=== PATIENT | male | born 2000 | race African-American/Black ===

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

== ENCOUNTER 2018-01-15 09:48 | Emergency (ER) | payer SELFPAY ==
[2018-01-15] MEDS: LIDOCAINE WITH 8.4% SOD BICARB 3 ML DISP.SYRIN. INJ (11:20)
[2018-01-15] MEDS: DIPHTH,PERTUSS(ACELL),TET TOX 0.5 ML DISP.SYRIN. VAX IM (11:21)
== END 2018-01-15 12:15 | disposition home or self-care (01) ==
LOC: ER 09:48
DX: S81.811A Laceration without foreign body, right lower leg, initial encounter (principal); S80.812A Abrasion, left lower leg, initial encounter; F12.10 Cannabis abuse, uncomplicated; W54.0XXA Bitten by dog, initial encounter; Y93.01 Activity, walking, marching and hiking; Y92.89 Other specified places as the place of occurrence of the external cause; Y99.8 Other external cause status
CPT/HCPCS: 12001; 90471; 90715; 99283

== ENCOUNTER 2020-10-10 10:55 | Emergency (ER) | payer SELFPAY ==
[~2020-10-10] VITALS: Ht 185.4 cm; Wt 118.6 kg
[~2020-10-10 10:55] MED LIST: AMOX1TAB61 PO
[2020-10-10 10:59] VITALS: BP 155/103
[2020-10-10] MEDS ORDERED: TETRACAINE 0.5% OPHTH SOLUTION 4ML BOTTLE. OU ONE (11:15)
[2020-10-10] MEDS ORDERED: ERYT1OIN6 OP (11:18)
--- NOTE | 2020-10-10 11:18 | PHYS DOC ---
Past Medical History Past Medical History: STD Past Surgical History: Tonsillectomy Smoking Status: Current Every Day Smoker Additional Information: 2 cigarettes daily Alcohol Use: None Drug Use: Marijuana General Adult EDM: Chief Complaint: EYE PROBLEMS HPI: HPI: Patient is a 19 year old male who presents with patient states for the last week or 2 he has had a stye in his upper eyelid that is just tender to touch and is been using a warm compress but is not helping. He states that he has no vision changes. Patient states he smoked a lot of marijuana last night and awoke with a blood clot attached to his conjunctiva. Patient states his only tender. Patient's only other history is being a smoker. Marijuana use. Review of Systems: Review of Systems: Constitutional: Denies fever or chills. [] Eyes: Denies change in visual acuity. + Blood clot, conjunctivae of pinkness, upper eyelid stye [] HENT: Denies nasal congestion or sore throat. [] Respiratory: Denies cough or shortness of breath. [] Cardiovascular: Denies chest pain or edema. [] GI: Denies abdominal pain, nausea, vomiting, bloody stools or diarrhea. [] : Denies dysuria. [] Musculoskeletal: Denies back pain or joint pain. [] Integument: Denies rash. +Bump to the upper eyelid skin [] Neurologic: Denies headache, focal weakness or sensory changes. [] Endocrine: Denies polyuria or polydipsia. [] Lymphatic: Denies swollen glands. [] Psychiatric: Denies depression or anxiety. [] Heart Score: Risk Factors: Risk Factors: DM, Current or recent (<one month) smoker, HTN, HLP, family history of CAD, obesity. Risk Scores: Score 0 - 3: 2.5% MACE over next 6 weeks - Discharge Home Score 4 - 6: 20.3% MACE over next 6 weeks - Admit for Clinical Observation Score 7 - 10: 72.7% MACE over next 6 weeks - Early Invasive Strategies Allergies: Allergies: Allergies Coded Allergies Type Severity Reaction Last Updated Verified No Known Drug Allergies 10/10/20 No Physical Exam: PE: Constitutional: Well developed, well nourished, no acute distress, non-toxic appearance. [] HENT: Normocephalic, atraumatic, bilateral external ears normal, oropharynx moist, no oral exudates, nose normal. [] Eyes: PERRLA, EOMI, conjunctiva pink, no discharge. Conjunctiva hemorrhage. Upper eyelid stye that is skin colored [] Neck: Normal range of motion, no tenderness, supple, no stridor. [] Cardiovascular:Heart rate regular rhythm, no murmur [] Lungs & Thorax: Bilateral breath sounds clear to auscultation [] Abdomen: Bowel sounds normal, soft, no tenderness, no masses, no pulsatile masses. [] Skin: Warm, dry, no erythema, no rash. [] Back: No tenderness, no CVA tenderness. [] Extremities: No tenderness, no cyanosis, no clubbing, ROM intact, no edema. [] Neurologic: Alert and oriented X 3, normal motor function, normal sensory function, no focal deficits noted. [] Psychologic: Affect normal, judgement normal, mood normal. [] Current Patient Data: Vital Signs: Vital Signs Date Time Temp Pulse Resp B/P (MAP) Pulse Ox O2 Delivery O2 Flow Rate FiO2 10/10/20 10:59 98.7 92 16 155/103 (120) 97 Room Air 98.7 EKG: EKG: [] Radiology/Procedures: Radiology/Procedures: [] Course & Med Decision Making: Course & Med Decision Making Pertinent Labs and Imaging studies reviewed. (See chart for details) See HPI. Alert and oriented x4. Ambulatory with a steady gait. PERRLA. Conjunctiva is pink in color. Afebrile. Speaks in full clear sentences. Skin pink warm and dry. No redness around the eye or swelling around the eye. Patient is sent home with erythromycin ointment. Eye Exam Visual accuity: Eye exam: PERRL, Extraocular muscles intact. No signs of ruptured globe. Sclera pink. Red reflex present. Conjunctiva hemorrhage is broken apart and mostly removed besides a very small scant portion. Patient states he feels much better. Foreign body: No foreign bodies seen with examination or with lid flip exam. With upper eyelid flip exam stye can be seen from underneath. Stye on the outside of the upper eyelid is skin colored. Slightly tender to palpation. Rufino-pen: NA Fluorescein test: No corneal abrasion. Anesthetic: Tetracaine [] Dragon Disclaimer: Dragon Disclaimer: This electronic medical record was generated, in whole or in part, using a voice recognition dictation system. Departure Departure Impression: Primary Impression: Stye Qualified Codes: H00.014 - Hordeolum externum left upper eyelid Additional Impression: Conjunctival hemorrhage Qualified Codes: H11.32 - Conjunctival hemorrhage, left eye Disposition: DC HOME SELF CARE/HOMELESS Condition: STABLE Referrals: NO PCP (PCP) Shavon BRANNON MD Patient Instructions: Sty, Subconjunctival Hemorrhage Additional Instructions: Use ointment as prescribed. Follow-up with primary care provider if needed. I have also referred you to an eye doctor. If vision changes or eye pain gets worse return to emergency room. Scripts Erythromycin Base (Erythromycin) 1 Gm Oint...g. 1 GM OP TID for 10 Days, #1 [facility] [place]: WHITLEY GUTIERREZ APRN 10/10/20 WHITLEY GUTIERREZ APRN Oct 10, 2020 11:18
== END 2020-10-10 11:32 | disposition home or self-care (01) ==
LOC: ER 10:55
DX: H00.014 Hordeolum externum left upper eyelid (principal); H11.32 Conjunctival hemorrhage, left eye; F12.90 Cannabis use, unspecified, uncomplicated; F17.210 Nicotine dependence, cigarettes, uncomplicated; Z90.89 Acquired absence of other organs
CPT/HCPCS: 99283

== ENCOUNTER 2021-03-19 19:44 | Emergency (ER) | payer SELFPAY ==
[~2021-03-19] VITALS: Ht 188 cm; Wt 113.6 kg
[~2021-03-19 19:44] MED LIST changes: +ERYT1OIN6 OP
[2021-03-19 19:50] VITALS: BP 149/94
[2021-03-20] MEDS ORDERED: FLUT10.6 IH (23:05)
[2021-03-20] MEDS ORDERED: VENTOLIN HFA18 GM INH (23:05)
== END 2021-03-19 21:15 | disposition left against medical advice (07) ==
LOC: ER 19:44
DX: U07.1 COVID-19 (principal); R51.9 Headache, unspecified; Z53.21 Procedure and treatment not carried out due to patient leaving prior to being seen by health care provider

== ENCOUNTER 2021-03-20 19:59 | Emergency (ER) | payer SELFPAY ==
[~2021-03-20] VITALS: Ht 157.5 cm; Wt 116.8 kg
[2021-03-20] MEDS ORDERED: ONDANSETRON PF 4 MG/2 ML VIAL. IVP ONE (21:30)
[2021-03-20] MEDS ORDERED: DEXAMETHASONE SOD PHOS 20 MG/5 ML VIAL. IV ONE (21:30)
[2021-03-20] MEDS ORDERED: IV NORMAL SALINE 1000ML BAG 1,000 ML IV ONE (21:30)
[2021-03-20] MEDS ORDERED: PROCHLORPERAZINE 10 MG/2 ML VIAL. IV ONE (21:30)
[2021-03-20] MEDS ORDERED: diphenhydrAMINE 50 MG/ML VIAL IVP ONE (21:30)
[2021-03-20 21:34] LABS: BASO % 0 % (0-3); EOS % 0 % (0-3); HEMATOCRIT 47.2 % (39.0-53.0); HEMOGLOBIN 16.5 g/dL (13.0-17.5); LYMPH % 24 % (24-48); MEAN CORPUSCULAR HEMOGLOBIN 30 pg (25-35); MEAN CORPUSCULAR HGB CONC 35 g/dL (31-37); MEAN CORPUSCULAR VOLUME 87 fL (79-100); MONO # 0.5 x10^3/uL (0.0-1.1); MONO % 12 % (0-9); NEUT # 2.7 x10^3/uL (1.8-7.7); NEUT % 64 % (31-73); PLATELET COUNT 153 x10^3/uL (140-400); RED BLOOD COUNT 5.42 x10^6/uL (4.30-5.70); RED CELL DISTRIBUTION WIDTH 13.1 % (11.5-14.5); WHITE BLOOD COUNT 4.2 x10^3/uL (4.0-11.0)
[2021-03-20 21:41] LABS: CALCIUM 8.7 mg/dL (8.5-10.1); CREATININE 1.2 mg/dL (0.7-1.3); GFR 91.6; POTASSIUM 3.7 mmol/L (3.5-5.1)
[2021-03-20 21:47] LABS: ALBUMIN 4.1 g/dL (3.4-5.0); ALBUMIN/GLOBULIN RATIO 1.2 (1.0-1.7); TOTAL BILIRUBIN 0.4 mg/dL (0.2-1.0); TOTAL PROTEIN 7.5 g/dL (6.4-8.2)
--- NOTE | 2021-03-20 21:57 | RAD ---
STUDY: CT head without contrast INDICATION: Headache. Covid positive. COMPARISON: 12/13/2015 TECHNIQUE: Axial CT imaging through the head without the use of intravenous contrast. Sagittal and co laurel reformats were obtained. One or more of the following individualized dose reduction techniques were utilized for this examinat ion: 1. Automated exposure control 2. Adjustment of the mA and/or kV according to patient size 3. Use of iterative reconstruction technique. FINDINGS: No acute intracranial hemorrhage. Campbell-white matter differentiation is maintained. The density of the dural sinuses is within normal limits. No mass effect, midline shift or hydrocephalus. Intact calvarium. Mostly opacified left sphenoid sinus with fluid/debris. Partial opacification of th e ethmoidal air cells. IMPRESSION: 1. No acute intracranial abnormality by CT. 2. Findings involving the sphenoid and ethmoidal sinuses suggesting active sinusitis. Electronically signed by: ROSALES BARCENAS MD (03/20/2021 9:54 PM) [facility]
[2021-03-20 22:57] VITALS: BP 123/56
[2021-03-20] MEDS ORDERED: VENTOLIN HFA18 GM INH (23:05)
[2021-03-20] MEDS ORDERED: FLUT10.6 IH (23:05)
--- NOTE | 2021-03-20 23:06 | PHYS DOC ---
Past Medical History Past Medical History: STD Additional Past Medical Histor: COVID19 Past Surgical History: Tonsillectomy Smoking Status: Never Smoker Alcohol Use: None Drug Use: Marijuana General Adult EDM: Chief Complaint: MULTIPLE COMPLAINTS HPI: HPI: 20-year-old male past medical history of asthma, presents to the ED with complaints of painful headache behind the eye, (gradual onset), with associated shortness of breath when waking, mild nause/vomiting/loose stools, lack of taste or smell and generalized fatigue. Patient reports he tested positive for Covid 5 days ago on March 15. Was not vaccinated for Covid due to concern for vaccination adverse effect. Is not a tobacco smoker. No blunt head injury. Review of Systems: Review of Systems: Constitutional: Denies fever or chills. [] Eyes: Denies change in visual acuity. [] HENT: Denies nasal congestion or sore throat. [] Respiratory: Denies cough or hemoptysis Cardiovascular: Denies chest pain or edema. [] GI: Denies abdominal pain or bloody stools : Denies dysuria or hematuria Musculoskeletal: Denies back pain or joint pain. [] Integument: Denies rash or diaphoresis Neurologic: Denies neck stiffness or focal weakness or sensory changes. [] Endocrine: Denies polyuria or polydipsia. [] Lymphatic: Denies swollen glands. [] Psychiatric: Denies depression or anxiety. [] Heart Score: C/O Chest Pain: No Risk Factors: Risk Factors: DM, Current or recent (<one month) smoker, HTN, HLP, family history of CAD, obesity. Risk Scores: Score 0 - 3: 2.5% MACE over next 6 weeks - Discharge Home Score 4 - 6: 20.3% MACE over next 6 weeks - Admit for Clinical Observation Score 7 - 10: 72.7% MACE over next 6 weeks - Early Invasive Strategies Current Medications: Current Medications Medications (Trade) Dose Ordered Sig/Chitra Start Time Stop Time Status Last Admin Dose Admin Dexamethasone Sodium Phosphate (Decadron) 10 mg 1X ONCE 03/20/21 21:30 03/20/21 21:31 DC 03/20/21 21:26 10 MG Diphenhydramine HCl (Benadryl) 25 mg 1X ONCE 03/20/21 21:30 03/20/21 21:31 DC 7/18/21 21:27 25 MG Ondansetron HCl (Zofran) 4 mg 1X ONCE 03/20/21 21:30 03/20/21 21:31 DC 03/20/21 21:26 4 MG Prochlorperazine Edisylate (Compazine) 10 mg 1X ONCE 03/20/21 21:30 03/20/21 21:31 DC 03/20/21 21:26 10 MG Sodium Chloride 1,000 ml @ 1,000 mls/hr 1X ONCE 03/20/21 21:30 03/20/21 22:29 DC 03/20/21 21:26 1,000 MLS/HR Allergies: Allergies: Allergies Coded Allergies Type Severity Reaction Last Updated Verified No Known Drug Allergies 10/10/20 No Physical Exam: PE: Constitutional: Well developed, well nourished, no acute distress, non-toxic appearance. HENT: Normocephalic, atraumatic, moist mucous membranes Eyes: PERRLA, EOMI, conjunctiva normal, no discharge. Neck: Normal range of motion, supple, no nuchal rigidity or meningismus Cardiovascular: S1/2 present, regular rhythm Lungs & Thorax: Speaking in full sentences, bilateral equal chest rise, no tachypnea or increased work of breathing Abdomen: soft, no tenderness, Skin: Warm, dry, no erythema, no rash. [] Extremities: No tenderness, no cyanosis, Neurologic: Alert and oriented X 3, normal motor function, normal sensory function, no focal deficits noted. [] Psychologic: Affect normal, judgement normal, mood normal. [] Current Patient Data: Labs: Laboratory Tests Test 03/20/21 21:21 White Blood Count 4.2 x10^3/uL (4.0-11.0) Red Blood Count 5.42 x10^6/uL (4.30-5.70) Hemoglobin 16.5 g/dL (13.0-17.5) Hematocrit 47.2 % (39.0-53.0) Mean Corpuscular Volume 87 fL (79-100) Mean Corpuscular Hemoglobin 30 pg (25-35) Mean Corpuscular Hemoglobin Concent 35 g/dL (31-37) Red Cell Distribution Width 13.1 % (11.5-14.5) Platelet Count 153 x10^3/uL (140-400) Neutrophils (%) (Auto) 64 % (31-73) Lymphocytes (%) (Auto) 24 % (24-48) Monocytes (%) (Auto) 12 % (0-9) H Eosinophils (%) (Auto) 0 % (0-3) Basophils (%) (Auto) 0 % (0-3) Neutrophils # (Auto) 2.7 x10^3/uL (1.8-7.7) Lymphocytes # (Auto) 1.0 x10^3/uL (1.0-4.8) Monocytes # (Auto) 0.5 x10^3/uL (0.0-1.1) Eosinophils # (Auto) 0.0 x10^3/uL (0.0-0.7) Basophils # (Auto) 0.0 x10^3/uL (0.0-0.2) Sodium Level 138 mmol/L (136-145) Potassium Level 3.7 mmol/L (3.5-5.1) Chloride Level 99 mmol/L (98-107) Carbon Dioxide Level 30 mmol/L (21-32) Anion Gap 9 (6-14) Blood Urea Nitrogen 6 mg/dL (8-26) L Creatinine 1.2 mg/dL (0.7-1.3) Estimated GFR (Cockcroft-Gault) 91.6 BUN/Creatinine Ratio 5 (6-20) L Glucose Level 89 mg/dL (70-99) Calcium Level 8.7 mg/dL (8.5-10.1) Total Bilirubin 0.4 mg/dL (0.2-1.0) Aspartate Amino Transferase (AST) 32 U/L (15-37) Alanine Aminotransferase (ALT) 65 U/L (16-63) H Alkaline Phosphatase 84 U/L (46-116) Total Protein 7.5 g/dL (6.4-8.2) Albumin 4.1 g/dL (3.4-5.0) Albumin/Globulin Ratio 1.2 (1.0-1.7) Laboratory Tests 03/20/21 21:21 Laboratory Tests 03/20/21 21:21 Vital Signs: Vital Signs Date Time Temp Pulse Resp B/P (MAP) Pulse Ox O2 Delivery O2 Flow Rate FiO2 03/20/21 20:05 99.6 105 18 139/97 (120) 97 Room Air 99.6 EKG: EKG: [] Radiology/Procedures: Radiology/Procedures: IMAGING REPORT Signed PATIENT: JILLIAN BRINK ACCOUNT: [id number] : 2000 LOCATION: ER AGE: 20 SEX: M EXAM STATUS: REG ER ORD. PHYSICIAN: NIGHAT ALAMO DO REASON: headache, covid + PROCEDURE: CT HEAD WO CONTRAST STUDY: CT head without contrast INDICATION: Headache. Covid positive. COMPARISON: 12/13/2015 TECHNIQUE: Axial CT imaging through the head without the use of intravenous contrast. Sagittal and coronal reformats were obtained. One or more of the following individualized dose reduction techniques were utilized for this examination: 1. Automated exposure control 2. Adjustment of the mA and/or kV according to patient size 3. Use of iterative reconstruction technique. FINDINGS: No acute intracranial hemorrhage. Campbell-white matter differentiation is maintained. The density of the dural sinuses is within normal limits. No mass effect, midline shift or hydrocephalus. Intact calvarium. Mostly opacified left sphenoid sinus with fluid/debris. Partial opacification of the ethmoidal air cells. IMPRESSION: 1. No acute intracranial abnormality by CT. 2. Findings involving the sphenoid and ethmoidal sinuses suggesting active sinusitis. Electronically signed by: ROSALES BARCENAS MD (03/20/2021 9:54 PM) [facility] DICTATED and SIGNED BY: ROSALES BARCENAS MD DATE: 03/20/21 [id number] Course & Med Decision Making: Course & Med Decision Making Pertinent Labs and Imaging studies reviewed. (See chart for details) Concern for acute sinus headache likely secondary related to COVID-19. Patient 's headache resolved with migraine cocktail. CT head negative for any acute pathology. No nasal voice or congestion during the exam. Unremarkable basic labs. Will prescribe albuterol and Flovent inhaler given history of asthma. Will discharge home with strict ED return precautions were given for increased work of breathing, dyspnea, palpitations, chest pain, strokelike symptoms or syncope. Encouraged urgent outpatient follow-up with PMD for routine care and follow-up. Life-threatening processes were considered but are low suspicion at this time, given history, physical exam and ED workup. Pt was educated on all prescription medications and adverse effects. All patient's questions were answered and pt was stable at time of discharge. Life/limb-threatening differential includes but is not limited to, airway emergency or respiratory distress/ARDS or fatigue or head or neck swelling, toxidrome, sepsis/shock, angioedema, anaphylaxis, congestive heart failure, myocarditis, acute myocardial infarction, dysrhythmias, cardiomyopathy, venous thromboembolism, pulmonary emboli, Owens syndrome, acute necrotizing hemorrhagic encephalopathy ,cerebral venous thrombosis, meningitis, encephalitis or CVA. I have spoken with the patient and/or caregivers. I explained the patient's condition, diagnoses and treatment plan based on the information available to me at this time. I have answered the patient and/or caregiver's questions and addressed any concerns. The patient and/or caregivers have a good understanding of patient's diagnosis, condition and treatment plan as can be expected at this point. Vital signs have been stable. Patient's condition is stable and appropriate for discharge from the emergency department. Patient will pursue further outpatient evaluation with primary care physician or other designated or consulting physician as outlined in the discharge instr uctions. The patient and/or caregivers are agreeable to this plan of care and follow-up instructions have been explained in detail. The patient and/or caregivers have received these instructions in written form and have expressed an understanding of the discharge instructions. The patient and/or caregivers are aware that any significant change of condition or worsening of symptoms should prompt immediate return to this or the closest emergency department or call to 911. Nhan Disclaimer: Nhan Disclaimer: This electronic medical record was generated, in whole or in part, using a voice recognition dictation system. Departure Departure Impression: Primary Impression: Headache Additional Impression: COVID-19 Disposition: HOME / SELF CARE / HOMELESS Condition: STABLE Referrals: NO PCP (PCP) Follow-up with your primary care physician in 1 week OR FOLLOW UP WITH FAMILY MEDICINE: [address], [address] [place] [address] Patient Instructions: General Headache Without Cause Additional Instructions: Return to ED immediately if your oxygen level drops below 90% (purchase a pulse oximetry at a medical supply store), difficulties breathing including rapid breathing or increased work of breathing (skin sucking under ribs), chest pain or stroke-like symptoms (facial droop, speech changes, arm/leg weakness). You have been tested for or diagnosed with COVID-19. It is an infection caused by a new type of coronavirus. COVID-19 will cause cold-like or mild flu symptoms in most. It can cause more severe symptoms like problems breathing in some. There is no treatment for COVID-19. The body will clear the infection over time. Self-care will help to ease discomfort. Steps to Take: Self-Care Rest as needed. Healthy habits may help you feel better. Steps include: Choose healthy foods including fruits and vegetables. Drink water throughout the day. Get plenty of sleep each night. If you smoke, try to quit. It may ease breathing. Avoid alcohol. Keep Others Healthy The virus can spread to others. Droplets are released every time you sneeze or cough. The droplets can get into the mouth, nose, or eyes of people near you and lead to infection. To lower the chances of spreading COVID-19 to others: Stay at home until your doctor has said it is safe to leave. If you tested positive this will mean staying isolated until both of the following are true: At least 7 days have passed since the start of illness. You are free of fever for at least 72 hours without the use of medicine. During this time: - Avoid public areas, events, or transportation. Do not return to work or school until your doctor has said it is safe to do so. - Call ahead if you need to go to a medical center. Let them know you may have COVID-19. It will help them guide you where to go. They may also ask you to wear a facemask when you come to the office. - If you call for emergency medical services, let them know you may have COVID- 19. While at home: - Try to avoid close contact with others. Stay about 6 feet away. - If possible, spend most of your time in a separate room from others. - Use a face mask if you will be in close contact with others such as sharing a room or vehicle. - Have someone wipe down common surfaces in the home. Use household welder fitter arc every day on areas like doorknobs, counters, or sinks. - Cough or sneeze into a tissue. Throw the tissue away right after use. If a tissue is not available, cough or sneeze into your elbow. - Wash your hands often. Wash them after sneezing or coughing. Use soap and water and wash for at least 20 seconds. Alcohol based hand cleaner housekeeping can be used if soap and water is not available. - Do not prepare food for others. Avoid sharing personal items like forks, spoons, or toothbrushes. - Avoid close contact with pets while you are sick. There is no evidence of the virus passing to pets. This is a safety step until more is known about this virus. Isolation can be frustrating. Social interaction can help. Keep in touch with friends and family through phone and tech options. You can still interact with others in your home, just keep a safe distance of about 6 feet. Follow-up: Your doctors office will check in with you to see if there are any changes in your health. You may be asked to keep track of symptoms to share with them. They will also let you know when you are clear to be in public again. Problems to Look Out For: Contact your doctor if your recovery is not going as you expect. Get emergency care if you have problems such as: - Trouble breathing - Nonstop chest pain or pressure - Changes in awareness, confusion, or problems waking - Lips or face have bluish color - Worsening of symptoms If you think you have an emergency, call for emergency medical services right away. As taken from [facility] Fluticasone Propionate (FLOVENT 44MCG HFA) 10.6 Gm Aer.w.adap 2 PUFF IH BID, #1 INHALER 2 Refills Prov: NIGHAT ALAMO DO 03/20/21 Albuterol Sulfate (VENTOLIN HFA INHALER) 18 Gm Hfa.aer.ad 2 PUFF INH QID for FOR ASTHMA, #1 INHALER 0 Refills Prov: NIGHAT ALAMO DO 03/20/21 NIGHAT ALAOM DO Mar 20, 2021 23:06
== END 2021-03-20 23:15 | disposition home or self-care (01) ==
LOC: ER 19:59
DX: U07.1 COVID-19 (principal); J45.909 Unspecified asthma, uncomplicated
CPT/HCPCS: 36415; 70450; 80053; 85025; 96361; 96374; 96375; 99285; J0780; J1100; J1200; J2405; J7030